=== PATIENT | female | born 1980 | race Caucasian/White ===

== ENCOUNTER 2022-03-18 18:45 | Emergency (ER) | payer SELFPAY ==
[~2022-03-18] VITALS: Ht 165.1 cm; Wt 59.0 kg
[2022-03-18] MEDS ORDERED: OLANZAPINE 10 MG VIAL IM ONE (20:00)
--- NOTE | 2022-03-18 20:15 | NUR ---
BIBLISA/RA FROM THE STREETS FOR BREAKING WINDOWS. PLACED ON 5150 FOR DANGER TO SELF. PATIENT IS A/O X 3, RR EVEN AND UNLABORED, NO SOB NOTED. PATIENT TAKEN TO ER BED 13. SITTER AT BEDSIDE. PATIENT CONNECTED TO HUMAN RESOURCE ASSISTANT AND POX.
[2022-03-18 20:23] LABS: BASOPHILS % (AUTO) 0.6 % (0.0-2.0); EOSINOPHILS % (AUTO) 0.4 % (0.0-6.0); HEMATOCRIT 31 % (33-45); HEMOGLOBIN 9.8 g/dL (11.5-14.8); LYMPHOCYTES # (AUTO) 0.7 K/uL (0.8-4.8); MEAN CORPUSCULAR HGB CONC 31 g/dl (31.0-36.0); MEAN CORPUSCULAR VOLUME 66 fL (82-100); MONOCYTES # (AUTO) 0.3 K/uL (0.1-1.30); MONOCYTES % (AUTO) 5.4 % (2.0-12.0); NEUTROPHILS % (AUTO) 82.6 % (43.0-81.0); PLATELET COUNT (AUTO) 404 K/uL (150-450); RED BLOOD CELL COUNT(AUTO) 4.74 MIL/uL (4.0-5.2)
[2022-03-18 20:25] LABS: CALCIUM, SERUM 8.5 mg/dL (8.5-10.1); CARBON DIOXIDE 26 mmol/L (21-32); CHLORIDE 105 mmol/L (98-107); GLUCOSE 90 mg/dL (74-106); POTASSIUM 2.9 mmol/L (3.5-5.1); SODIUM SERUM 141 mmol/L (136-145); UREA NITROGEN, BLOOD 19 mg/dL (7-18)
[2022-03-18 20:29] LABS: ALANINE AMINOTRANSFERASE 24 U/L (12-78); ALBUMIN 3.3 g/dL (3.4-5.0); ALKALINE PHOSPHATASE 96 U/L (46-116); ASPARTATE AMINOTRANSFERASE 31 U/L (15-37); BILIRUBIN,DIRECT 0.1 mg/dL (0.0-0.2); BILIRUBIN,TOTAL 0.2 mg/dL (0.2-1.0); TOTAL PROTEIN, SERUM 7.9 g/dL (6.4-8.2)
[2022-03-18 20:33] LABS: ACETAMINOPHEN < 0 ug/ml (10-30); ALCOHOL, BLOOD < 3 mg/dL (0-0)
--- NOTE | 2022-03-18 20:39 | NUR ---
urine collected sent to lab
--- NOTE | 2022-03-18 20:39 | NUR ---
blood collected sent to lab
[2022-03-18] MEDS ORDERED: IV PREMIX D5 1/2NS + KCL 1,000 ML IV ONE ×2 (20:48→21:00)
[2022-03-18] MEDS ORDERED: POTASSIUM CHLORIDE 20 MEQ TAB.PRT.SR PO ONE ×2 (20:50→21:00)
[2022-03-18 21:22] LABS: BAND % (MANUAL) 1 % (0.0-5.0); LYMPHOCYTES % (MANUAL) 13 % (16-48); MONOCYTES % (MANUAL) 3 % (0-11.0); NEUTROPHILS % (MANUAL) 83 (42-76)
[2022-03-18 21:41] LABS: BILIRUBIN,URINE NEGATIVE (NEGATIVE); COLOR,URINE YELLOW (YELLOW); LEUKOCYTE ESTERASE ,URINE NEGATIVE (NEGATIVE); NITRITE, URINE NEGATIVE (NEGATIVE); PROTEIN,URINE NEGATIVE (NEGATIVE); UGLUCOSE NEGATIVE (NEGATIVE); UROBILINOGEN,URINE 0.2 EU/dL (0.2)
--- NOTE | 2022-03-19 05:15 | NUR ---
PT SLEEPING, AROUSE TO STIMULI, A/O X 2-3, NOT ANSWERING STAFF QUESTIONS AT THIS TIME.
--- NOTE | 2022-03-19 08:00 | NUR ---
THE PATIENT IS RECEIVED IN ER BED #13. THE PATIENT IS ALERT AND ORIENTED X4. IN ROOM AIR AND DENIES SOB. RESPIRATION REGULAR AND UNLABORED. THE PATIENT DENIES SI/HI. DENIES HAVING ANY VISUAL/AUDITORY HALLUCINATIONS. WILL CONTINUE TO MONITOR THE PATIENT. SITTER AT THE BEDSIDE.
--- NOTE | 2022-03-19 08:20 | NUR ---
BREAKFAST SERVED. THE PATIENT MAGGIE [employer] WE[employer].
--- NOTE | 2022-03-19 10:49 | NUR ---
PAGED TESTS SUPERINTENDENT (ERAN VILLALBA). SHE SAID SHE WILL COME TO SPEAK WITH THE PATIENT.
--- NOTE | 2022-03-19 12:05 | NUR ---
LUNCH SERVED. THE PATIENT MAGGIE [employer] WELL.
--- NOTE | 2022-03-19 13:10 | NUR ---
ERAN AT BEDSIDE TO SPEAK W/ PATIENT.
--- NOTE | 2022-03-19 14:15 | NUR ---
IV removed. Catheter intact and site benign. Pressure and 4x4 applied to site. No bleeding noted. Patient given written and verbal discharge instructions. Patient verbalizes understanding of instructions. Patient is ambulatory with steady gait. Refuses offer of snf placement. Patient given list of available shelters in surrounding area. The patient got discharged in stable condition.
[2022-03-19 14:16] VITALS: BP 127/68
== END 2022-03-19 14:16 | disposition home or self-care (01) ==
LOC: ER 18:49
DX: R46.2 Strange and inexplicable behavior (principal); E87.6 Hypokalemia; D64.9 Anemia, unspecified; Z59.00 Homelessness unspecified; Z20.822 Contact with and (suspected) exposure to COVID-19
CPT/HCPCS: 36415; 80048; 80076; 80143; 80307; 80320; 81003; 84702; 85007; 85025; 87426; 96365; 96366; 99285; C9803; J3490; G0480